=== PATIENT | female | born 1950 | race Caucasian/White ===

== ENCOUNTER 2017-02-10 12:49 | Emergency (ER) | payer OTHER ==
[~2017-02-10] VITALS: Ht 172.7 cm; Wt 77.1 kg
[2017-02-10] MEDS ORDERED: HYDROcodone/APAP 7.5/325MG 1 TAB TABLET PO ONE (14:30)
--- NOTE | 2017-02-10 14:30 | PHYS DOC ---
Past Medical History Past Medical History: Fibromyalgia, High Cholesterol Past Surgical History: Hysterectomy, Tonsillectomy Additional Past Surgical Histo: R KNEE MENISCUS AND TIBIA FX, SINUS, L ROTATOR CUFF Alcohol Use: None Drug Use: None Adult General Chief Complaint Chief Complaint: LOWER EXT PAIN HPI HPI Patient is a 66 year old female presents with complaints of right knee pain. Patient had a recent procedure for fluid drainage from knee on January 21. pain started yesterday while patient was ambulating, no trauma. No fevers, no skin changes. Patient does state that it appears her leg is a little bit more swollen than usual. Review of Systems Review of Systems Constitutional: Denies fever or chills [] Respiratory: Denies cough or shortness of breath [] Cardiovascular: No additional information not addressed in HPI [] Musculoskeletal: right knee pain, leg swelling Integument: Denies rash or skin lesions [] Endocrine: Denies polyuria or polydipsia [] Other ROS: all systems negative unless noted. Current Medications Current Medications Current Medications Medications (Trade) Dose Ordered Sig/Javier Start Time Stop Time Status Last Admin Dose Admin Acetaminophen/ Hydrocodone Bitart (Lortab 7.5/325) 1 tab 1X ONCE 02/10/17 14:30 02/10/17 14:31 DC 02/10/17 14:32 1 TAB Allergies Allergies Allergies Coded Allergies Type Severity Reaction Last Updated Verified Penicillins Allergy Intermediate 02/10/17 No codeine Allergy Intermediate CAN TOLERATE HYDROCODONE/OXYCODONE 02/10/17 No sertraline Allergy Intermediate 02/10/17 No Physical Exam Physical Exam Constitutional: Well developed, well nourished, mild distress, non-toxic appearance. [] HENT: Normocephalic, atraumatic, Eyes: EOMI, conjunctiva normal, no discharge. [] Neck: Normal range of motion, [] Cardiovascular:Heart rate regular rhythm, no murmur [] Lungs & Thorax: Bilateral breath sounds clear to auscultation [] Abdomen: Bowel sounds normal, soft, no tenderness, no masses, no pulsatile masses. [] Skin: Warm, dry, no erythema, no rash. [] Extremities: No tenderness, no cyanosis, no clubbing, ROM intact, no edema. No signs of septic joint, mild swelling lower tigh Neurologic: Alert and oriented X 3, normal motor function, normal sensory function, no focal deficits noted. [] Psychologic: Affect normal, judgement normal, mood normal. [] Current Patient Data Vital Signs Vital Signs Date Time Temp Pulse Resp B/P (MAP) Pulse Ox O2 Delivery O2 Flow Rate FiO2 02/10/17 14:32 Room Air 02/10/17 14:00 97.6 78 18 96 97.6 EKG EKG [] Radiology/Procedures Radiology/Procedures [] Course & Med Decision Making Course & Med Decision Making Pertinent Labs and Imaging studies reviewed. (See chart for details) pt in nad. Agrees to f/u with pcp/orthopedic MD for recheck in 1-2 days. Pt has opiate medication at home but not taking it at regular intervals, I advice to take q6hr 2 tabs. Dragon Disclaimer Dragon Disclaimer This electronic medical record was generated, in whole or in part, using a voice recognition dictation system. Departure Departure Referrals: MICHAEL PAL MD (PCP) Jeanine CHE MD Feb 10, 2017 14:30
--- NOTE | 2017-02-10 14:44 | RAD ---
Right knee, 3 views, 02/10/2017: History: Knee pain No previous radiographs are available at this time for comparison purposes. There is an ill-defined sclerotic focus in the proximal tibia medially. There is an underlying linear lucency. The patient reports a history of recent knee surgery. It is unclear whether this represents an old pin tract, biopsy tract or chronic stress type fracture. No other fracture or dislocation is identified. The knee joint space is mildly narrowed. There is considerable subcutaneous edema anteriorly. IMPRESSION: Mixed sclerotic and lytic process in the proximal tibia medially as described above which may represent a chronic stress fracture, although an infectious or neoplastic etiology cannot be excluded. Correlation with previous radiographs and the nature of the patient's recent surgery is suggested.
--- NOTE | 2017-02-10 15:04 | RAD ---
Right lower extremity venous ultrasound, 02/10/2017 : History: Right leg pain Duplex evaluation including grayscale, color flow and spectral Doppler analysis was performed. The femoral and popliteal veins show no filling defects to suggest DVT. The visualized deep veins in the right calf are unremarkable. IMPRESSION: There is no sonographic evidence of deep vein thrombosis in the right lower extremity
[2017-02-10 15:37] VITALS: BP 160/72
== END 2017-02-10 16:10 | disposition home or self-care (01) ==
LOC: ER 12:49
DX: M25.561 Pain in right knee (principal); E78.00 Pure hypercholesterolemia, unspecified; M79.7 Fibromyalgia; Z88.0 Allergy status to penicillin; Z88.6 Allergy status to analgesic agent; Z88.8 Allergy status to other drugs, medicaments and biological substances
CPT/HCPCS: 73562; 93971; 99284-25

== ENCOUNTER → 2017-09-25 | Outpatient (CLI) | payer OTHER, MEDICARE | END | disposition home or self-care (01) | LOC: KCIC MRI 08:31 | DX: M17.11 Unilateral primary osteoarthritis, right knee (principal); M71.21 Synovial cyst of popliteal space [Baker], right knee; M25.461 Effusion, right knee; M94.261 Chondromalacia, right knee; M25.761 Osteophyte, right knee; R60.0 Localized edema | CPT/HCPCS: 73721 ==

== ENCOUNTER 2019-01-20 13:32 | Emergency (ER) | payer OTHER, MEDICARE ==
[~2019-01-20] VITALS: Ht 172.7 cm; Wt 77.1 kg
[2019-01-20 13:52] VITALS: BP 180/100
--- NOTE | 2019-01-20 13:56 | PHYS DOC ---
Past Medical History Past Medical History: Fibromyalgia, High Cholesterol Past Surgical History: Hysterectomy, Tonsillectomy Additional Past Surgical Histo: R KNEE MENISCUS AND TIBIA FX, SINUS, L ROTATOR CUFF Alcohol Use: None Drug Use: None Adult General Chief Complaint Chief Complaint: LOWER BACK PAIN OR INJURY [facility] HPI Patient is a 68 year old female who presents with lower back pain that radiates down her left leg. The patient has a history of sciatica. The patient also is complaining of left lower leg pain and swelling. The pain has been ongoing since after she was doing physical therapy. Patient rates her pain as 8 out of 10 in severity and describes it as sharp and throbbing. Patient is tried to take muscle relaxers and oxycodone at home. Oxycodone did help her sleep briefly last night from 2-3 hours. Review of Systems Review of Systems Constitutional: Denies fever or chills [] Eyes: Denies change in visual acuity, redness, or eye pain [] HENT: Denies nasal congestion or sore throat [] Respiratory: Denies cough or shortness of breath [] Cardiovascular: No additional information not addressed in HPI [] GI: Denies abdominal pain, nausea, vomiting, bloody stools or diarrhea [] : Denies dysuria or hematuria [] Musculoskeletal: Reports left lower back pain. Has swelling and tenderness down left lower leg. Integument: Denies rash or skin lesions [] Neurologic: Denies headache, focal weakness or sensory changes [] Endocrine: Denies polyuria or polydipsia [] Complete systems were reviewed and found to be within normal limits, except as documented in this note. Current Medications Current Medications Current Medications Medications (Trade) Dose Ordered Sig/Javier Start Time Stop Time Status Last Admin Dose Admin Cyclobenzaprine HCl (Flexeril) 10 mg 1X ONCE 01/20/19 14:00 01/20/19 14:01 DC 01/20/19 14:03 10 MG Morphine Sulfate (Morphine Sulfate) 8 mg 1X ONCE 01/20/19 14:00 01/20/19 14:01 DC 01/20/19 14:04 8 MG Allergies Allergies Allergies Coded Allergies Type Severity Reaction Last Updated Verified Penicillins Allergy Intermediate 02/10/17 No codeine Allergy Intermediate CAN TOLERATE HYDROCODONE/OXYCODONE 02/10/17 No sertraline Allergy Intermediate 02/10/17 No Physical Exam Physical Exam Constitutional: Well developed, well nourished, no acute distress, non-toxic appearance. [] HENT: Normocephalic, atraumatic, bilateral external ears normal, oropharynx mois t, no oral exudates, nose normal. [] Eyes: PERRLA, EOMI, conjunctiva normal, no discharge. [] Neck: Normal range of motion, no tenderness, supple, no stridor. [] Cardiovascular:Heart rate regular rhythm, no murmur [] Lungs & Thorax: Bilateral breath sounds clear to auscultation [] Abdomen: Bowel sounds normal, soft, no tenderness, no masses, no pulsatile masses. [] Skin: Warm, dry, no erythema, no rash. [] Back: Tenderness to left lower back, no CVA tenderness. [] Extremities: Tenderness to left calf, with edema, and warmth behind left knee. Neurologic: Alert and oriented X 3, normal motor function, normal sensory function, no focal deficits noted. [] Psychologic: Affect normal, judgement normal, mood normal. [] Current Patient Data Vital Signs Vital Signs Date Time Temp Pulse Resp B/P (MAP) Pulse Ox O2 Delivery O2 Flow Rate FiO2 01/20/19 14:04 18 98 Room Air 01/20/19 13:52 97.8 96 180/100 (126) 97.8 Lab Values Laboratory Tests Test 01/20/19 14:59 POC Hemoglobin 12.6 g/dL (12-15) POC Hematocrit 37 % (36-40) POC Sodium 136 mmol/L (135-145) POC Potassium 4.2 mmol/L (3.5-5.0) POC Chloride 109 mmol/L (98-110) POC Total CO2 18 mmol/L (23-32) L Anion Gap 14 mmol/L (6-14) POC Blood Urea Nitrogen 9 mg/dL (8-26) POC Creatinine 0.7 mg/dL (0.5-1.4) Glucose Level 83 mg/dL (70-99) POC Ionized Calcium (Mathew) 1.00 mmol/L (1.13-1.32) L Laboratory Tests 01/20/19 14:59 EKG EKG [] Radiology/Procedures Radiology/Procedures [][facility] [address] [place] [address] IMAGING REPORT Signed PATIENT: TAY OBRIEN ACCOUNT: [id number] : 1950 LOCATION: ER AGE: 68 SEX: F EXAM STATUS: REG ER ORD. PHYSICIAN: NOEMI SHAVER APRN REASON: LLE swelling, tenderness PROCEDURE: VENOUS LOWER EXT BILATERAL Bilateral Leg Venous Doppler Ultrasound, 01/20/2019 Indication: Left E swelling and tenderness Comparison: None available Procedure: Real-time grayscale, color flow color duplex Doppler and spectral analysis are obtained with and without compression in the area of the common femoral vein, superficial femoral vein - femoral vein junction, main femoral vein (superficial femoral vein) and popliteal vein. Veins of the proximal calf are also imaged. Findings: There is extensive occlusive clot seen in the left common, superficial femoral vein, popliteal vein. There is also partially occlusive clot in one of the 2 paired posterior tibial veins and one peroneal vein. There is also clot in the greater saphenous vein. There is normal duplex flow, color flow and compressibility of all visualized vein segments in the right lower extremity. No evidence of deep venous thrombus is present. Impression: Extensive DVT left lower extremity. No evidence of DVT seen in the right lower extremity. Electronically signed by: Ira Meadows MD (01/20/2019 3:11 PM) [facility] Course & Med Decision Making Course & Med Decision Making Pertinent Labs and Imaging studies reviewed. (See chart for details) Patient is having back pain radiating down left leg. History of sciatica and this sound similar. Also having left lower extremity and swelling. Will give pain medication and get venous ultrasound. I-Stat shows Na: 136, K of 4.2, CL of 109, ICA, 1.00, C02 18, GLU 83, BUN 9, CREAT 0.7, HCT 37, HB 12.6, GAP 14, Ultrasound shows DVT to left leg. Denies shortness of breath. Talked to Dr. Fairchild with extensive involvement, who states there is nothing extra surgically that could be done. Will prescribe Eliquis and have follow up with PCP for further management. Gave precautions on PE and Compartment syndrome as well as educated on risks of falls on this medication. [facility] when went to fill script and was having difficulty getting authorization for Eliquis so switched to Xaralto 15 mg BID x 21, then 20 mg daily. Dragon Disclaimer Dragon Disclaimer This electronic medical record was generated, in whole or in part, using a voice recognition dictation system. Departure Departure Impression: Primary Impression: Deep vein thrombosis (DVT) Additional Impression: Sciatica Disposition: HOME, SELF-CARE Condition: STABLE Referrals: MICHAEL PAL MD (PCP) Patient Instructions: Deep Vein Thrombosis Additional Instructions: Thank you for visiting [facility]. We appreciate you trusting us with your care. If any additional problems come up don't hesitate to return to visit us. Please follow up with your primary care provider so they can plan additional care if needed and know about the problem that you had. If symptoms worsen come back to the Emergency Department. Any concerning symptoms that start such as chest pain, shortness of air, weakness or numbness on one side of the body, running high fevers or any other concerning symptoms return to the ER. If you start developing shortness of breath please come back to ER. Please get prescription filled and follow instruction. Follow up with your PCP this coming week for further management. Take 10 mg BID x 7 days of Eliquis and THEN start 5 mg BID daily of Eliquis until your primary care doctor deems appropriate. Scripts Apixaban (ELIQUIS) 5 Mg Tablet 5 MG PO BID for 14 Days, #28 TAB Prov: NOEMI SHAVER APRN 01/20/19 Apixaban (ELIQUIS) 5 Mg Tablet 10 MG PO BID for 7 Days, #28 TAB Prov: NOEMI SHAVER APRN 01/20/19 Problem Qualifiers Primary Impression: Deep vein thrombosis (DVT) DVT location: lower extremity Chronicity: acute Laterality: left Additional Impression: Sciatica Laterality: left Qualified Codes: M54.32 - Sciatica, left side NOEMI SHAVER APRN Jan 20, 2019 13:56
[2019-01-20] MEDS ORDERED: CYCLOBENZAPRINE 10 MG TABLET. PO ONE (14:00)
[2019-01-20] MEDS ORDERED: MORPHINE SULFATE 10 MG/ML VIAL. IM ONE (14:00)
[2019-01-20 15:12] LABS: CREATININE ISTAT 0.7 mg/dL (0.5-1.4); HEMOGLOBIN ISTAT 12.6 g/dL (12-15); POTASSIUM ISTAT 4.2 mmol/L (3.5-5.0)
--- NOTE | 2019-01-20 15:14 | RAD ---
Bilateral Leg Venous Doppler Ultrasound, 01/20/2019 Indication: Left E swelling and tenderness Comparison: None available Procedure: Real-time grayscale, color flow color duplex Doppler and spectral analysis are obtained with and without compression in the area of the common femoral vein, superficial femoral vein - femoral vein junction, main femoral vein (superficial femoral vein) and popliteal vein. Veins of the proximal calf are also imaged. Findings: There is extensive occlusive clot seen in the left common, superficial femoral vein, popliteal vein. There is also partially occlusive clot in one of the 2 paired posterior tibial veins and one peroneal vein. There is also clot in the greater saphenous vein. There is normal duplex flow, color flow and compressibility of all visualized vein segments in the right lower extremity. No evidence of deep venous thrombus is present. Impression: Extensive DVT left lower extremity. No evidence of DVT seen in the right lower extremity. Electronically signed by: Ira Meadows MD (01/20/2019 3:11 PM) [facility]
[2019-01-20] MEDS ORDERED: APIX5TAB PO (15:17)
== END 2019-01-20 15:45 | disposition home or self-care (01) ==
LOC: ER 13:32
DX: I82.412 Acute embolism and thrombosis of left femoral vein (principal); I82.432 Acute embolism and thrombosis of left popliteal vein; M54.42 Lumbago with sciatica, left side; E78.00 Pure hypercholesterolemia, unspecified; Z88.0 Allergy status to penicillin; Z88.5 Allergy status to narcotic agent; Z88.8 Allergy status to other drugs, medicaments and biological substances
CPT/HCPCS: 36415; 80047; 85014; 85018; 93970; 96372; 99285; J2270

== ENCOUNTER 2021-01-01 19:54 | Emergency (ER) | payer OTHER, MEDICARE ==
[~2021-01-01] VITALS: Ht 170.2 cm; Wt 77.3 kg
[~2021-01-01 19:54] MED LIST: APIX5TAB PO
--- NOTE | 2021-01-01 20:21 | PHYS DOC ---
Past Medical History Past Medical History: Fibromyalgia, High Cholesterol Past Surgical History: Appendectomy, Hysterectomy, Tonsillectomy Additional Past Surgical Histo: R KNEE MENISCUS AND TIBIA FX, SINUS, L ROTATOR CUFF Smoking Status: Never Smoker Alcohol Use: None Drug Use: None General Adult EDM: Chief Complaint: FOREIGN BODY/EYES HPI: HPI: Patient is a 70-year-old female presenting for right eye irritation. Onset was 1.5 hours prior to arrival. Reports being outside with wind, unsure if allergies or dust got in her eye but she reports having to itch it vigorously due to foreign body sensation. She went home and tried utilizing dry eye solution to irrigate her eye without improvement in symptoms. Reports it started turning red with constant itching and feeling of foreign body sensation prompting her to come in for evaluation. She is concerned that she has significant right eye history, is established at [facility] with manager call center due to prior right cataract transplant. Reports slight blurred vision in right eye without any pain with ocular movements or focal pain Review of Systems: Review of Systems: Fourteen body systems of review of systems have been reviewed. See HPI for pertinent positives and negative responses, other henao all other systems are negative, non-pertinent or non-contributory Heart Score: C/O Chest Pain: No Risk Factors: Risk Factors: DM, Current or recent (<one month) smoker, HTN, HLP, family history of CAD, obesity. Risk Scores: Score 0 - 3: 2.5% MACE over next 6 weeks - Discharge Home Score 4 - 6: 20.3% MACE over next 6 weeks - Admit for Clinical Observation Score 7 - 10: 72.7% MACE over next 6 weeks - Early Invasive Strategies Allergies: Allergies: Allergies Coded Allergies Type Severity Reaction Last Updated Verified Penicillins Allergy Intermediate 02/10/17 No codeine Allergy Intermediate CAN TOLERATE HYDROCODONE/OXYCODONE 02/10/17 No sertraline Allergy Intermediate 02/10/17 No Physical Exam: PE: Constitutional: Well developed, well nourished, no acute distress, non-toxic appearance. HENT: Normocephalic, atraumatic, bilateral external ears normal, oropharynx moist, no oral exudates, nose normal. Eyes: PERRLA, EOMI, right conjunctiva injected, no discharge. Visual acuity L 20/50, Rt 20/70, B 20/50, no pain with ocular movements. Ophthalmoscope utilized without any concerning findings, disc intact without any obvious abnormalities noted, extensive evaluation of bilateral eyelids without obvious foreign body or trauma. No ability to perform IOP but bilateral palpation unremarkable without firmness or concern for markedly increased IOP. Tetracaine and subsequent fluorescein utilized with slit lamp exam performed showing no dendrites, no Joey sign, there is small 1 mm linear corneal abrasion present at 9 o'clock position and x2 other separate linear 1 mm corneal abrasions at 2 and 3 o'clock positions in relation to pupil with all abrasions overlying the cornea Neck: Normal range of motion, no tenderness, supple, no stridor. Cardiovascular: Heart rate regular, sinus rhythm, no murmurs rubs or gallops Lungs & Thorax: Bilateral breath sounds clear to auscultation Abdomen: Bowel sounds normal, soft, no tenderness, no masses, no pulsatile masses. Nonsurgical abdomen, no peritoneal signs Skin: Warm, dry, no erythema, no rash. Back: No tenderness, no CVA tenderness. Extremities: No tenderness, no cyanosis, no clubbing, ROM intact, no edema. Neurologic: Alert and oriented X 3, grossly normal motor & sensory function, no focal deficits noted. Psychologic: Affect normal, judgement normal, mood normal. Current Patient Data: Labs: Current Medications Medications (Trade) Dose Ordered Sig/Javier Route PRN Reason Start Time Stop Time Status Last Admin Dose Admin Fluorescein Sodium (Ful-Ankita) 1 strip STK-MED ONCE .ROUTE 01/01/21 20:31 01/01/21 20:31 DC Tetracaine HCl (Tetracaine) 40 drop STK-MED ONCE .ROUTE 01/01/21 20:31 01/01/21 20:31 DC Fluorescein Sodium (Ful-Ankita) 1 strip 1X ONCE OD 01/01/21 20:45 01/01/21 20:47 DC 01/01/21 20:37 Tetracaine HCl (Tetracaine) 1 drop 1X ONCE OD 01/01/21 20:45 01/01/21 20:47 DC 01/01/21 20:38 Ciprofloxacin (Ciloxan Ophth) 1 drop 1X ONCE OD 01/01/21 21:15 01/01/21 21:16 DC 01/01/21 21:22 Vital Signs: Vital Signs Date Time Temp Pulse Resp B/P (MAP) Pulse Ox O2 Delivery O2 Flow Rate FiO2 01/01/21 20:20 98.8 104 18 148/66 (93) 95 Room Air 98.8 Vital Signs Date Time Temp Pulse Resp B/P (MAP) Pulse Ox O2 Delivery O2 Flow Rate FiO2 01/01/21 20:20 98.8 104 18 148/66 (93) 95 Room Air 98.8 EKG: EKG: [] Radiology/Procedures: Radiology/Procedures: [] Course & Med Decision Making: Course & Med Decision Making Discussed with the patient all findings and diagnostic testing. I discussed most likely diagnosis of corneal abrasion to right eye. Patient symptoms improved with tetracaine. I discussed with high risk history she should contact her manager call center first thing in the morning for repeat evaluation in upcoming 24 to 48 hours. Joint decision to discharge patient home with Toradol eyedrops and ciprofloxacin eyedrop in a patient who does not use contacts. I again stressed need for close outpatient follow-up to review today's ER visit. Strict return precautions were also discussed at length with good understanding by patient. Patient voiced understanding and agreement with the plan. Patient knows to come back for repeat evaluation if concerning signs or symptoms present prior to outpatient follow-up. Hemodynamically stable, ambulatory and well-appearing at time of disposition. Dragon Disclaimer: Kelan Disclaimer: This electronic medical record was generated, in whole or in part, using a voice recognition dictation system. Departure Departure Impression: Primary Impression: Right corneal abrasion Disposition: HOME / SELF CARE / HOMELESS Condition: STABLE Referrals: FRANCHESCA GOINS MD (PCP) Patient Instructions: Eye - Corneal Abrasion Additional Instructions: You were seen for right eye irritation. You most likely have a corneal abrasion and was caused by trauma to the eye. The pain should improve in the next few days. Use over the counter eye drops or any medications prescribed here as directed. Follow up with an manager call center as recommended in upcoming 48 hours for repeat evaluation. Return to the ED if you develop worsening pain, vision change, fever, or any other new or concerning symptoms. Scripts Ketorolac Tromethamine (KETOROLAC TROMETHAMINE) 5 Ml Drops 1 DROP RIGHTEYE QID for itching for 3 Days, #5 ML 0 Refills Prov: AMA EWING DO 01/01/21 Ciprofloxacin Hcl (CIPROFLOXACIN HCL) 2.5 Ml Drops 1 DROP RIGHTEYE QID for corneal abrasion for 5 Days, #5 ML 0 Refills Prov: AMA EWING DO 01/01/21 AMA EWING DO Jan 01, 2021 20:21
[2021-01-01] MEDS ORDERED: TETRACAINE 0.5% OPHTH SOLUTION 4ML BOTTLE. ONE (20:31)
[2021-01-01] MEDS ORDERED: FLUORESCEIN OPHTH TEST STRIP. ONE (20:31)
[2021-01-01] MEDS ORDERED: FLUORESCEIN OPHTH TEST STRIP. OD ONE (20:45)
[2021-01-01] MEDS ORDERED: TETRACAINE 0.5% OPHTH SOLUTION 4ML BOTTLE. OD ONE (20:45)
[2021-01-01] MEDS ORDERED: KETO5DRO24 RIGHTEYE (21:10)
[2021-01-01] MEDS ORDERED: CIPR2.5D2 RIGHTEYE (21:10)
[2021-01-01] MEDS ORDERED: CIPROFLOXACIN 0.3% OPHTH SOLUTION 5ML BOTTLE. OD ONE (21:15)
== END 2021-01-01 21:26 | disposition home or self-care (01) ==
LOC: ER 19:54
DX: S05.01XA Injury of conjunctiva and corneal abrasion without foreign body, right eye, initial encounter (principal); E78.00 Pure hypercholesterolemia, unspecified; X58.XXXA Exposure to other specified factors, initial encounter; Y93.89 Activity, other specified; Y92.89 Other specified places as the place of occurrence of the external cause; Y99.8 Other external cause status
CPT/HCPCS: 99284

== ENCOUNTER 2021-01-26 22:00 | Emergency (ER) | payer OTHER, MEDICARE ==
[2021-01-01 20:20] VITALS: BP 148/66
[~2021-01-26 22:00] MED LIST changes: +CIPR2.5D2 RIGHTEYE; +KETO5DRO24 RIGHTEYE
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
[2021-01-26] MEDS ORDERED: BACITRACIN TOPICAL OINT PACKET. TP ONE (23:15)
== END 2021-01-26 23:48 | disposition home or self-care (01) ==
LOC: ER 22:00
DX: T21.22XA Burn of second degree of abdominal wall, initial encounter (principal); M79.7 Fibromyalgia; E78.00 Pure hypercholesterolemia, unspecified; I10 Essential (primary) hypertension; Z88.0 Allergy status to penicillin; Z88.5 Allergy status to narcotic agent; Z88.8 Allergy status to other drugs, medicaments and biological substances; X10.0XXA Contact with hot drinks, initial encounter; Y93.89 Activity, other specified; Y92.89 Other specified places as the place of occurrence of the external cause; Y99.8 Other external cause status
CPT/HCPCS: 16020; 99282

== ENCOUNTER 2021-06-09 14:23 | Emergency (ER) | payer OTHER, MEDICARE ==
[~2021-06-09] VITALS: Ht 170.2 cm; Wt 79.4 kg
[2021-06-09 15:47] VITALS: BP 158/72
[2021-06-09] MEDS ORDERED: CLINDAMYCIN HCL 150 MG CAPSULE. PO ONE (16:45)
[2021-06-09] MEDS ORDERED: SMZ/TMP 800/160MG TABLET. PO ONE (16:45)
--- NOTE | 2021-06-09 17:40 | RAD ---
STUDY: 1. CT head without contrast 2. CT maxillofacial without contrast INDICATION: Dog bite to the face. COMPARISON: None. TECHNIQUE: Axial CT imaging of the head and maxillofacial structures performed without the use of int ravenous contrast. Sagittal and coronal reformats were obtained. One or more of the following individualized dose reduction techniques were utilized for this examinat ion: 1. Automated exposure control 2. Adjustment of the mA and/or kV according to patient size 3. Use of iterative reconstruction technique. FINDINGS: CT HEAD: No acute intracranial hemorrhage. No CT evidence for an acute cortical infarction. Left temporal lobe encephalomalacia. Localized hypoattenuation beneficial to the left frontal lobe favored a manifestat ion of volume loss as opposed to a chronic subdural collection. No localized mass effect, midline sancho ft or hydrocephalus. No acute calvarial abnormality. Normally aerated mastoid air cells. CT MAXILLOFACIAL: Tracking soft tissue gas along the right aspect of the face seen along the portion of the nose down t o the maxilla. Surrounding haziness of the liver contains fat edema. No retained radiodense foreign b melissa. Symmetric positioning of the globes. Unremarkable retrobulbar soft tissues. No associated facial bone fracture. No layering fluid within the paranasal sinuses. Mild mucosal thickening such as at th e base of the sphenoid and the left maxillary sinus is mildly hypoplastic/atelectatic. A few dental caries. Normally aligned temporomandibular joints. Degenerative changes at the upper cer vical spine. No gas or overt inflammatory changes of the deeper spaces of the neck. Carotid calcific atherosclerosis. IMPRESSION: CT HEAD: 1. No acute intracranial abnormality by CT. 2. Left temporal lobe encephalomalacia could be the sequela of previous trauma or remote infarct. CT MAXILLOFACIAL: 1. Laceration injury to the right aspect of the face with soft tissue gas tracking from the nose carolin n to the maxilla. No associated fracture or retained radiodense foreign body. Electronically signed by: KORIN LOVETT MD (06/09/2021 5:37 PM) [facility]
[2021-06-09] MEDS ORDERED: NEOMY/BACITR/POLYMYXIN OINT PACKET. TP ONE (18:00)
[2021-06-09] MEDS ORDERED: KETOROLAC 30 MG/ML VIAL. IM ONE (18:00)
[2021-06-09] MEDS ORDERED: diphenhydrAMINE HCL 25 MG CAPSULE PO ONE (18:00)
[2021-06-09] MEDS ORDERED: DEXAMETHASONE 4 MG TABLET PO ONE (18:00)
[2021-06-09] MEDS ORDERED: CLIN-94 PO (18:01)
[2021-06-09] MEDS ORDERED: SULF1TAB24 PO (18:01)
[2021-06-09] MEDS ORDERED: L.AC1CAP6 PO (18:01)
--- NOTE | 2021-06-09 18:01 | PHYS DOC ---
Past Medical History Past Medical History: Fibromyalgia, High Cholesterol, Hypertension Additional Past Medical Histor: DRY EYE SYNDROME,PE,CHRONIC BACK PAIN Past Surgical History: Appendectomy, Hysterectomy, Knee Replacement, Tonsillectomy Additional Past Surgical Histo: R KNEE MENISCUS/TIBIA FX,SINUS,L ROTATOR CUFF Smoking Status: Never Smoker Alcohol Use: Rarely Drug Use: None General Adult EDM: Chief Complaint: ANIMAL BITE HPI: HPI: 70-year-old female past medical history of postoperative lower extremity DVT on Xarelto, hypertension, hyperlipidemia, GERD, chronic back and neck pain on oxycodone, presents the ED with her , (patient consents to his/her/their knowledge and involvement in pts' medical care), complaints of dog bite to her face that occurred just prior to ED arrival. Patient reports her tetanus was updated last year and dog's rabies was updated November 232020. States she was sitting on the couch and when she leaned down to hug her dog he bit her on the face. Animal has been acting appropriately-they have owned this animal for 2 years. Patient did not lose consciousness or pass out. Does report left-sided headache. Denies any associated fever, neck stiffness, blurry vision, epistaxis or difficulties breathing. Review of Systems: Review of Systems: Constitutional: Denies fever or chills. [] Eyes: Denies change in visual acuity. [] HENT: Denies nasal congestion or sore throat. [] Respiratory: Denies cough or shortness of breath. [] Cardiovascular: Denies chest pain or edema. [] GI: Denies nausea or vomiting : Denies dysuria or vaginal bleeding Musculoskeletal: Denies back pain or joint pain. [] Integument: Denies desquamation or diaphoresis Neurologic: Denies focal weakness or sensory changes. [] Endocrine: Denies polyuria or polydipsia. [] Lymphatic: Denies swollen glands. [] Psychiatric: Denies depression or anxiety. [] Heart Score: C/O Chest Pain: No Risk Factors: Risk Factors: DM, Current or recent (<one month) smoker, HTN, HLP, family history of CAD, obesity. Risk Scores: Score 0 - 3: 2.5% MACE over next 6 weeks - Discharge Home Score 4 - 6: 20.3% MACE over next 6 weeks - Admit for Clinical Observation Score 7 - 10: 72.7% MACE over next 6 weeks - Early Invasive Strategies Current Medications: Current Medications Medications (Trade) Dose Ordered Sig/Javier Start Time Stop Time Status Last Admin Dose Admin Clindamycin HCl (Cleocin) 450 mg 1X ONCE 06/09/21 16:45 06/09/21 16:46 DC 06/09/21 17:30 450 MG Trimethoprim/ Sulfamethoxazole (Bactrim Ds) 1 tab 1X ONCE 06/09/21 16:45 06/09/21 16:46 DC 06/09/21 17:29 1 TAB Allergies: Allergies: Allergies Coded Allergies Type Severity Reaction Last Updated Verified Penicillins Allergy Intermediate 02/10/17 No codeine Allergy Intermediate CAN TOLERATE HYDROCODONE/OXYCODONE 02/10/17 No sertraline Allergy Intermediate 02/10/17 No Physical Exam: PE: Constitutional: Well developed, well nourished, no acute distress, non-toxic appearance. HENT: 1.5 cm superficial laceration on left eyebrow with no active bleeding, no midline neck pain, gross blood in nares with no obvious septal hematoma, no hemotympanum, no raccoon eyes, healed/scabbed over < 1 cm laceration to left proximal nasal bridge and another healed jagged 1.5 cm laceration over left nasal ala (in the crease), left cheek with 0.5 cm healed laceration/scabbed over, Eyes: PERRLA, EOMI, conjunctiva normal, no discharge, no infraorbital anesthesia Neck: Normal range of motion, supple, the patient presented to the emergency department with a c-collar in place. With a c-collar in place I performed an initial exam and determined that the Nexus C-spine criteria are negative: There is no post midline tenderness, the patient is not intoxicated, there is a normal level of alertness, there are no focal neurologic deficits and there are no distracting injuries. Therefore the c-collar has been removed. Cardiovascular: S1/2 present, regular rhythm Lungs & Thorax: Speaking in full sentences, bilateral equal chest rise, no tachypnea or increased work of breathing Skin: Warm, dry, no erythema, no rash. [] Extremities: No tenderness, no cyanosis, Neurologic: Alert and oriented X 3, normal motor function, normal sensory function, no focal deficits noted. [] Psychologic: Affect normal, judgement normal, mood normal. [] Current Patient Data: Vital Signs: Vital Signs Date Time Temp Pulse Resp B/P (MAP) Pulse Ox O2 Delivery O2 Flow Rate FiO2 06/09/21 15:47 98.3 85 16 158/72 (100) 100 Room Air 98.3 EKG: EKG: [] Radiology/Procedures: Radiology/Procedures: []IMAGING REPORT Signed PATIENT: TYA OBRIEN ACCOUNT: [id number] : 1950 LOCATION: ER AGE: 70 SEX: F EXAM STATUS: REG ER ORD. PHYSICIAN: PREMA CARMONA DO REASON: dog bite to nose/upper left eyebrow, r/o fx PROCEDURE: CT HEAD AND MAXILLOFACIAL WO STUDY: 1. CT head without contrast 2. CT maxillofacial without contrast INDICATION: Dog bite to the face. COMPARISON: None. TECHNIQUE: Axial CT imaging of the head and maxillofacial structures performed without the use of intravenous contrast. Sagittal and coronal reformats were obtained. One or more of the following individualized dose reduction techniques were utilized for this examination: 1. Automated exposure control 2. Adjustment of the mA and/or kV according to patient size 3. Use of iterative reconstruction technique. FINDINGS: CT HEAD: No acute intracranial hemorrhage. No CT evidence for an acute cortical infarction. Left temporal lobe encephalomalacia. Localized hypoattenuation beneficial to the left frontal lobe favored a manifestation of volume loss as opposed to a chronic subdural collection. No localized mass effect, midline shift or hydrocephalus. No acute calvarial abnormality. Normally aerated mastoid air cells. CT MAXILLOFACIAL: Tracking soft tissue gas along the right aspect of the face seen along the portion of the nose down to the maxilla. Surrounding haziness of the liver contains fat edema. No retained radiodense foreign body. Symmetric positioning of the globes. Unremarkable retrobulbar soft tissues. No associated facial bone fracture. No layering fluid within the paranasal sinuses. Mild mucosal thickening such as at the base of the sphenoid and the left maxillary sinus is mildly hypoplastic/atelectatic. A few dental caries. Normally aligned temporomandibular joints. Degenerative changes at the upper cervical spine. No gas or overt inflammatory changes of the deeper spaces of the neck. Carotid calcific atherosclerosis. IMPRESSION: CT HEAD: 1. No acute intracranial abnormality by CT. 2. Left temporal lobe encephalomalacia could be the sequela of previous trauma or remote infarct. CT MAXILLOFACIAL: 1. Laceration injury to the right aspect of the face with soft tissue gas tracking from the nose down to the maxilla. No associated fracture or retained radiodense foreign body. Electronically signed by: KORIN LOVETT MD (06/09/2021 5:37 PM) [facility] DICTATED and SIGNED BY: KORIN LOVETT MD DATE: 06/09/21 [id number] 0 Course & Med Decision Making: Course & Med Decision Making Pertinent Labs and Imaging studies reviewed. (See chart for details) Concern from mild headache treated with migraine cocktail emergency department and multiple facial abrasions set healed spontaneously prior to ED arrival. No facial fractures on CT imaging. There is some soft tissue gas which is appropriate given dog bite into the nasal cavity. No external evidence of cellulitis or chondritis. Patient is pen allergic, will start on clindamycin, Bactrim and probiotics to cover for dog bite infections. Patient's tetanus is up-to-date. Patient and understand need for urgent rabies prophylaxis if animal should develop signs of rabies /they were educated on this. Wound care instructions given -including cellulitis print out to understand warning skin findings. Will discharge home with strict ED return precautions were given for skin rash, worsening pain/swelling/purulent drainage of face, headache, neurologic deficits or confusion. Encouraged urgent outpatient follow-up with PMD and ENT in 1 to 2 days for wound check-was warned about complications of head/neck/skin/cartilage infections. Life-threatening processes were considered but are low suspicion at this time, given history, physical exam and ED workup. Pt was educated on all prescription medications and adverse effects. All patient's questions were answered and pt was stable at time of discharge. Life/limb-threatening differential includes but is not limited to, intracranial hemorrhage, diffuse axonal injury, spinal cord syndrome, unstable cervical fracture or SCIWORA, fractures or joint dislocations, neurovascular injuries, organ injury or laceration, pneumothorax, pneumoperitoneum, pericardial tamponade, unstable pelvic fracture, compartment syndrome, flail chest or respiratory distress, burn injury or asphyxiation I have spoken with the patient and/or caregivers. I explained the patient's condition, diagnoses and treatment plan based on the information available to me at this time. I have answered the patient and/or caregiver's questions and addressed any concerns. The patient and/or caregivers have a good understanding of patient's diagnosis, condition and treatment plan as can be expected at this point. Vital signs have been stable. Patient's condition is stable and appropriate for discharge from the emergency department. Patient will pursue further outpatient evaluation with primary care physician or other designated or consulting physician as outlined in the discharge instructions. The patient and/or caregivers are agreeable to this plan of care and follow-up instructions have been explained in detail. The patient and/or caregivers have received these instructions in written form and have expressed an understanding of the discharge instructions. The patient and/or caregivers are aware that any significant change of condition or worsening of symptoms should prompt immediate return to this or the closest emergency department or call to 911. Shahriar Disclaimer: Shahriar Disclaimer: This electronic medical record was generated, in whole or in part, using a voice recognition dictation system. Departure Departure Impression: Primary Impression: Dog bite of face Disposition: 01 HOME / SELF CARE / HOMELESS Condition: STABLE Referrals: UNKNOWN PCP NAME (PCP) Follow-up with your primary care physician in 24 to 48 hours for wound check OR FOLLOW UP WITH FAMILY MEDICINE: [address] [facility], [facility] [address] [place] [address] Patient Instructions: Animal Bite, Cellulitis Additional Instructions: FOLLOW UP WITH ENT: FOR wound check in 1-2 days Otolaryngology [address] [facility], [address] [place] [address] petrology teacher [facility] [address] [place] [id number] EMERGENCY DEPARTMENT GENERAL DISCHARGE INSTRUCTIONS Thank you for coming to [facility] Emergency Department (ED) today and trusting us with you care. We trust that you had a positive experience in our Emergency Department. If you wish to speak to the department management, you may call the Director at [phone]. YOUR FOLLOW UP INSTRUCTIONS ARE FOLLOWS: 1. Do you have a private Doctor? If you do not have a private doctor, please ask for a resource list of physicians or clinics that may be able to assist you with follow up care. 2. The Emergency Physicain has interpreted your x-rays. The X-Ray specialist will also review them. If there is a change in the findings, you will be notified in 48 hours when at all possible. 3. A lab test or culture has been done, your results will be reviewed and you will be notified if you need a change in treatment. ADDITIONAL INSTRUCTIONS AND INFORMATION: 1. Your care today has been supervised by a physician who is specially trained in emergency care. Many problems require more than one evaluation for a complete diagnosis and treatment. We recommend that you schedule your follow up appointment as recommended to ensure complete treatment of you illness or injury. If you are unable to obtain follow up care and continue to have a problem, or if your condition worsens, we recommend that you return to the ED. 2. We are not able to safely determine your condition over the phone nor are we able to give sound medical advice over the phone. For these safety reasons, if you call for medical advice we will ask you to come to the ED for further evaluation. 3. If you have any questions regarding these discharge instructions please call the ED at [phone]. SAFETY INFORMATION: In the interest of safety, wellness, and injury prevention; we encourage you to wear your sealbelt, if you smoke; quite smoking, and we encourage family to use a protective helmet for bicycling and other sporting events that present an increased risk for head injury. IF YOUR SYMPTOMS WORSEN OR NEW SYMPTOMS DEVELOP, OR YOU HAVE CONCERNS ABOUT YOUR CONDITION; OR IF YOUR CONDITION WORSENS WHILE YOU ARE WAITING FOR YOUR FOLLOW UP APPOINTMENT; EITHER CONTACT YOUR PRIMARY CARE DOCTOR, THE PHYSICIAN WHOSE NAME AND NUMBER YOU WERE GIVEN, OR RETURN TO THE ED IMMEDIATELY. Scripts L.acidoph & Paracasei,B.lactis (Probiotic) 1 Each Capsule 1 EACH PO DAILY for 14 Days, #14 CAP Prov: PREMA CARMONA DO 06/09/21 Sulfamethoxazole/Trimethoprim (BACTRIM DS TABLET) 1 Each Tablet 1 TAB PO BID for infection for 10 Days, #20 TAB Prov: PREMA CARMONA DO 06/09/21 Clindamycin Hcl (CLINDAMYCIN HCL) 300 Mg Capsule 1 CAP PO TID for 10 Days, #30 CAP Prov: PREMA CARMONA DO 06/09/21 PREMA CARMONA DO Jun 09, 2021 18:01
== END 2021-06-09 19:07 | disposition home or self-care (01) ==
LOC: ER 14:23
DX: S01.112A Laceration without foreign body of left eyelid and periocular area, initial encounter (principal); S01.21XA Laceration without foreign body of nose, initial encounter; M79.7 Fibromyalgia; I10 Essential (primary) hypertension; E78.00 Pure hypercholesterolemia, unspecified; G89.29 Other chronic pain; E78.5 Hyperlipidemia, unspecified; K21.9 Gastro-esophageal reflux disease without esophagitis; Z86.718 Personal history of other venous thrombosis and embolism; Z88.0 Allergy status to penicillin; Z88.5 Allergy status to narcotic agent; Z88.8 Allergy status to other drugs, medicaments and biological substances; W54.0XXA Bitten by dog, initial encounter; Y93.89 Activity, other specified; Y92.89 Other specified places as the place of occurrence of the external cause; Y99.8 Other external cause status
CPT/HCPCS: 70450; 70486; 96372; 99284; J1885; Q0163